=== PATIENT | female | born 1945 | race Caucasian/White ===

== ENCOUNTER 2017-10-18 12:53 | Emergency (ER) | payer MEDICARE ==
[2017-10-18 13:26] LABS: #Eosinphils 0.2 thou/uL (0.0-0.7); #Lymphocytes 1.9 thou/uL (1.20-3.40); #Neutrophils 5.4 thou/uL (1.40-6.50); %Basophils 0.4 % (0.0-1.0); %Eosinophils 2.5 % (0.0-10.0); %Lymphocytes 22.5 % (21.0-51.0); %Monocytes 11.7 % (0.0-10.0); %Neutrophils 62.8 % (42.0-75.0); Hemoglobin 12.6 g/dL (12.0-16.0); Mean Corpuscular HGB CONC 31.8 g/dL (32.0-36.0); Mean Corpuscular Hemoglobin 31.2 pg (27.0-31.0); Mean Corpuscular Volume 98.1 fl (81.0-99.0); Mean Platelet Volume 7.4 fL (7.4-10.4); Platelet Count 212 thou/uL (130-400); RBC Distribution Width 13.3 % (11.5-14.5); Red Blood Cell (RBC) Count 4.04 mill/uL (4.20-5.40); White Blood Cell (WBC) Count 8.6 thou/uL (4.8-10.8)
--- NOTE | 2017-10-18 13:46 | RAD ---
SINGLE VIEW OF THE CHEST: HISTORY: Altered mental status. COMPARISON: 01/16/2016 FINDINGS: A single view of the chest shows a normal sized cardiomediastinal silhouette. The pacemaker is uncha nged in position. There is no evidence of consolidation, mass, or pleural effusion. IMPRESSION: No evidence of acute cardiopulmonary disease. POS: [facility]
[2017-10-18 13:54] LABS: CKMB 2.2 ng/mL (0-6.6)
[2017-10-18 14:00] LABS: ALT (SGPT) 11 U/L (8-55); AST (SGOT) 15 U/L (5-34); Albumin 3.4 g/dL (3.4-4.8); Alkaline Phosphatase 84 U/L (40-150); Anion Gap 14 mmol/L (10-20); BUN (Urea Nitrogen) 28 mg/dL (9.8-20.1); Bilirubin, Total 0.5 mg/dL (0.2-1.2); Calc. Creatinine Clearance 0 mL/min (70-130); Calcium 9.7 mg/dL (7.8-10.44); Carbon Dioxide 20 mmol/L (23-31); Chloride 106 mmol/L (98-107); Estimated GFR-MDRD 44; Globulin 3.2 g/dL (2.4-3.5); Glucose 94 mg/dL (83-110); Potassium 4.6 mmol/L (3.5-5.1); Protein, Total 6.6 g/dL (6.0-8.3); Sodium 135 mmol/L (136-145)
[2017-10-18] MEDS ORDERED: Promethazine HCl 12.5 MG SUPP ONE (15:45)
--- NOTE | 2017-10-18 15:57 | CT ---
CT BRAIN WITHOUT CONTRAST: Date: 10/18/17 HISTORY: Altered mental status. FINDINGS: Comparison made with exam dated 01/26/16. Changes of chronic small vessel ischemic disease are again seen. The ventricles are dilated, but stab le. High density linear foci in the anterior frontal lobes in the subarachnoid spaces of the anterior frontal lobes adjacent to the bur holes are again seen and are consistent with calcifications. No ev idence of acute infarct, hemorrhage, midline shift, or abnormal extra-axial fluid collections are see n. No depressed calvarial fracture is noted. The visualized paranasal sinuses and mastoid air cells a re well aerated. IMPRESSION: No CT evidence of acute intracranial process. POS: [facility]
== END 2017-10-18 16:28 | disposition home or self-care (01) ==
LOC: ERS 12:53
DX: R41.82 Altered mental status, unspecified (principal); I48.91 Unspecified atrial fibrillation; E03.9 Hypothyroidism, unspecified; I12.9 Hypertensive chronic kidney disease with stage 1 through stage 4 chronic kidney disease, or unspecified chronic kidney disease; N18.3 Chronic kidney disease, stage 3 (moderate); Z87.891 Personal history of nicotine dependence
CPT/HCPCS: 36415; 70450; 71045; 80053; 82553; 84484; 85025; 93005